=== PATIENT | female | born 1955 | race Caucasian/White ===

== ENCOUNTER → 2017-05-31 | Outpatient (CLI) | payer BC ==
[~2017-05-31] MED LIST: ACETAMINOPHEN PO; ACETAMINOPHEN650 M1 PO; ADVAIR 250-501 EACH IH; ADVAIR INH; ALBUTEROL 0.083% NEB; ALBUTEROL17 GM INH; ALBUTEROL2.5 MG/0.5 IH; BENICAR PO; FLAGYL PO; IMMODIUM PO; LEVAQUIN PO; LEVAQUIN750 MG PO; LISINOPRIL PO; MUCINEX 600 MG PO; MUCINEX PO; MULTIVITAMIN PO; PHENERGAN PO; PREDNISONE; PREDNISONE PO; PRILOSEC PO; PROVENTIL17 GM IH; ROBITUSSIN15 MG/5 ML PO; SPIRIVA INH; SPIRIVA18 MCG INH; TAMIFLU75 M1 DOB; TUSSIONEX PENN480 ML PO; TYLENOL 500 MG PO; VENTOLIN 90MCG INH
--- NOTE | ~2017-05-31 | US6 ---
[facility] A Service of [facility] & [facility] RADIOLOGY TEXT RESULTS PATIENT: HARSHAD ARANDA V LOCATION: [facility] : 55 UNIT #: [id number] AGE: [address]: Benito Verma MD SEX: F ORDER DR: [id number] [facility] [address] [place], [place] [address] [id number] O MR#: [id number] Acc #: [id number] NAME: HARSHAD ARANDA V. : 1955 SEX: F STUDY DATE/TIME: 05/31/2017 8:56 UNIT: [facility] ROOM: STUDY DESCRIPTION: US Abdominal Limited Attending Physician: Benito Coats M.D. Referring Physician: Benito Coats M.D. Ordering Physician: Benito Coats M.D. Primary Care Physician: Benito Coats M.D. MEDICAL IMAGING REPORT This report is preliminary unless electronic signature is present EXAM Right upper quadrant ultrasound, 05/31/2017 HISTORY Abnormally elevated liver enzymes, 05/09/2017. FINDINGS Ultrasound examination of the gallbladder is negative. There is no cholelithiasis, gallbladder wall thickening, or bile duct dilatation. The visualized liver is negative. IMPRESSION Negative gallbladder ultrasound examination. Dictated by... Nicholas Regan M.D. THIS IS AN ELECTRONICALLY VERIFIED REPORT Nicholas Regan M.D. at 06/01/2017 10:17 AM JONNATHAN/juanis TD: 05/31/2017 11:12 JOB #: [id number] MEDICAL IMAGING REPORT Page 1 of 1 COPY
== END | disposition home or self-care (01) ==
LOC: CGUS 05-25 09:00
DX: R74.8 Abnormal levels of other serum enzymes (principal)
CPT/HCPCS: 76705